=== PATIENT | male | born 1970 | race Caucasian/White ===

== ENCOUNTER 2019-05-26 08:06 | Emergency (ER) | payer BC ==
[2019-05-26 08:24] VITALS: BP 156/96
--- NOTE | 2019-05-26 08:51 | UC ---
Respiratory Complaint HPI - HPI Summary HPI Summary: PATIENT HAS HAD RESPIRATORY SYMPTOMS FOR ABOUT A WEEK INCLUDING COUGH, SINUS CONGESTION AND CHEST CONGESTION. NO FEVER OR NAUSEA/VOMITING. STATES HE FEELS THE SYMPTOMS ARE OVERALL IMPROVING BUT FOR THE PAST FEW DAYS HAS HAD SOME RIGHT SIDED BACK AND RIB PAIN THAT IS WORSE WITH DEEP BREATHS, MOVEMENT AND COUGHING. WAS CONCERNED ABOUT THIS SO CAME IN FOR EVALUATION. NO SHORTNESS OF BREATH OR CHEST PAIN. - History of Current Complaint Chief Complaint: UCGeneralIllness Stated Complaint: CHEST CONGESTION COUGH HEADACHE Time Seen by Provider: 05/26/19 08:32 Hx Obtained From: Patient Onset/Duration: Gradual Onset, Lasting Days, Still Present Timing: Constant Severity Initially: Moderate Severity Currently: Moderate Pain Intensity: 6 Pain Scale Used: 0-10 Numeric Character: Cough: Nonproductive Aggravating Factors: Deep Breaths Alleviating Factors: OTC Meds - IBUPROFEN Associated Signs And Symptoms: Positive: URI, Nasal Congestion, Sinus Discomfort - Allergies/Home Medications Allergies/Adverse Reactions: Allergies Allergy/AdvReac Type Severity Reaction Status Date / Time MS Penicillins [Penicillins] Allergy Mild Hives Verified 03/01/15 09:30 PMH/Surg Hx/FS Hx/Imm Hx Cardiovascular History: Hypertension - BORDERLINE - Surgical History Surgical History: Yes Surgery Procedure, Year, and Place: MASTOIDECTOMY RIGHT 1982,. 03/08/2015 RIGHT SIDE COCHLEAR ABUTMENT [facility] IMPLANT DR. VALENZUELA - INFORMATION FROM MANUFACTUR FOR THIS PT (MRI SAFE TO 3T; 3000 G/CM IN NORMAL MODE. EXTERNAL DEVICE (SOUND PROCESSOR) MUST BE REMOVED PRIOR TO ENTERING MRI SUITE!) *SEE OTHER FAC INFORMATION* - Family History Known Family History: Positive: Cardiac Disease, Hypertension Negative: Diabetes - Social History Alcohol Use: Rare Substance Use Type: None Smoking Status (MU): Never Smoked Tobacco Review of Systems All Other Systems Reviewed And Are Negative: Yes Constitutional: Positive: Negative ENT: Positive: Sore Throat, Nasal Discharge, Sinus Congestion Respiratory: Positive: Cough Cardiovascular: Positive: Negative Gastrointestinal: Positive: Negative Musculoskeletal: Positive: Other: - BACK PAIN Physical Exam Triage Information Reviewed: Yes Appearance: Well-Appearing, No Pain Distress, Well-Nourished Vital Signs: Initial Vital Signs Temp 98.8 F 05/26/19 08:15 Pulse 96 05/26/19 08:15 Resp 16 05/26/19 08:15 BP 156/96 05/26/19 08:15 Pulse Ox 97 05/26/19 08:15 Vital Signs Reviewed: Yes Eyes: Positive: Conjunctiva Clear ENT: Positive: Hearing grossly normal, Pharynx normal Neck: Positive: Supple, Nontender, No Lymphadenopathy Respiratory Exam: Normal Cardiovascular Exam: Normal Abdomen Description: Positive: Soft Musculoskeletal: Positive: No Edema, Other: - PAIN NOT REPRODUCIBLE WITH PALPATION Neurological: Positive: Alert Psychological: Positive: Age Appropriate Behavior Skin: Negative: Rashes Respiratory Course/Dx - Course Course Of Treatment: PATIENT LIKELY STRAINED HIS INTERCOSTAL MUSCLES. LUNGS ARE CLEAR WITH EQUAL BREATH SOUNDS ALL THE WAY TO THE BASES. PATIENT DOES REPORT THAT OVERALL HIS RESPIRATORY SYMPTOMS ARE IMPROVING. DISCUSSED CHEST X-RAY HOWEVER GIVEN HIS CLINICAL IMPROVEMENT WILL DEFER THIS FOR NOW. NO INDICATION FOR ANTIBIOTICS. STATES HE FEELS MUCH BETTER WITH IBUPROFEN BUT HAS BEEN USING THIS CAUTIOUSLY DUE TO HIS BORDERLINE BLOOD PRESSURE. ADVISED TO GIVE IT A LITTLE MORE TIME HE WILL LIKELY CONTINUE TO IMPROVE. ENCOURAGED TO SEEK REEVALUATION IF HIS SYMPTOMS DO NOT CONTINUE TO IMPROVE OR IF HE DEVELOPS SHORTNESS OF BREATH, TACHYCARDIA, INCREASED PAIN, FEVER OR ANY OTHER CONCERNING SYMPTOMS. - Differential Dx/Diagnosis Provider Diagnosis: Acute bronchitis Discharge ED - Sign-Out/Discharge Documenting (check all that apply): Patient Departure All imaging exams completed and their final reports reviewed: No Studies - Discharge Plan Condition: Stable Disposition: HOME Prescriptions: predniSONE 20 mg TAB [Deltasone 20 MG TAB*] 40 mg PO DAILY #10 tab Patient Education Materials: Acute Bronchitis (ED) Referrals: Saul Benson, [employer] [Primary Care Provider] - If Needed Additional Instructions: YOUR SYMPTOMS ARE LIKELY VIRALLY MEDIATED AND SHOULD CONTINUE TO IMPROVE ON THEIR OWN WITH TIME. NO INDICATION FOR ANTIBIOTICS AT PRESENT. REST, HYDRATE, OTC MEDS NEEDED. WILL TREAT WITH PREDNISONE TO HELP WITH AIRWAY INFLAMMATION. YOUR PAIN IS LIKELY DUE TO STRAIN OF THE MUSCLES IN BETWEEN YOUR RIBS. SEEK FOLLOW-UP IF YOU ARE NOT CONTINUING TO IMPROVE OR IF YOUR SYMPTOMS WORSEN. - Billing Disposition and Condition Condition: STABLE Disposition: Home
== END 2019-05-26 09:01 | disposition home or self-care (01) ==
LOC: UCEAST 08:06
DX: J20.9 Acute bronchitis, unspecified (principal); J02.9 Acute pharyngitis, unspecified; M54.9 Dorsalgia, unspecified; I10 Essential (primary) hypertension; R09.89 Other specified symptoms and signs involving the circulatory and respiratory systems; Z88.0 Allergy status to penicillin
CPT/HCPCS: 99212; G0463